=== PATIENT | female | born 1960 | race Caucasian/White ===

== ENCOUNTER → 2017-05-13 | Outpatient (CLI) | payer OTHER | LOC: M.RAD 16:00 | DX: Z12.31 Encounter for screening mammogram for malignant neoplasm of breast (principal) ==

== ENCOUNTER → 2017-08-21 | Outpatient (CLI) | payer OTHER | LOC: M.ULTRA 15:23 | DX: N92.0 Excessive and frequent menstruation with regular cycle (principal); R93.8 Abnormal findings on diagnostic imaging of other specified body structures ==

== ENCOUNTER → 2017-12-03 | Outpatient (CLI) | payer OTHER | LOC: M.ULTRA 12:50 | DX: N63.10 Unspecified lump in the right breast, unspecified quadrant (principal); N63.20 Unspecified lump in the left breast, unspecified quadrant ==

== ENCOUNTER → 2018-05-13 | Outpatient (CLI) | payer OTHER | LOC: M.RAD 13:10 | DX: Z12.31 Encounter for screening mammogram for malignant neoplasm of breast (principal) ==

== ENCOUNTER → 2018-06-17 | Outpatient (CLI) | payer OTHER | LOC: M.ULTRA 10:30 | DX: R93.89 Abnormal findings on diagnostic imaging of other specified body structures (principal); Z88.2 Allergy status to sulfonamides; Z88.8 Allergy status to other drugs, medicaments and biological substances ==

== ENCOUNTER → 2018-08-28 | Outpatient (CLI) | payer OTHER ==
[2018-08-28 13:30] VITALS: BP 137/78
[2018-08-28 13:45] VITALS: BP 131/71
[2018-08-28 13:51] VITALS: BP 122/65
[2018-08-28 14:10] VITALS: BP 129/85
[2018-08-28 14:20] VITALS: BP 127/59
== END | disposition home or self-care (01) ==
LOC: M.CL 13:11
DX: R55 Syncope and collapse (principal); Z53.8 Procedure and treatment not carried out for other reasons; I10 Essential (primary) hypertension; E03.9 Hypothyroidism, unspecified; Z79.899 Other long term (current) drug therapy; Z88.2 Allergy status to sulfonamides; Z88.8 Allergy status to other drugs, medicaments and biological substances; Z98.890 Other specified postprocedural states; Z83.3 Family history of diabetes mellitus; Z82.49 Family history of ischemic heart disease and other diseases of the circulatory system

== ENCOUNTER → 2019-02-23 | Outpatient (CLI) | payer OTHER | LOC: M.CT 09:38 | DX: Z13.6 Encounter for screening for cardiovascular disorders (principal) ==

== ENCOUNTER 2019-04-26 09:53 | Emergency (ER) | payer OTHER ==
[~2019-04-26] VITALS: Ht 170.2 cm; Wt 70.3 kg
[2019-04-26] MEDS ORDERED: LISINOPRIL-HCT1 EAC2 PO (10:06)
[2019-04-26] MEDS ORDERED: KEFLEX500 M1 PO (10:56)
[2019-04-26 11:11] VITALS: BP 125/71
== END 2019-04-26 11:12 | disposition home or self-care (01) ==
LOC: M.ERS 09:53
DX: S61.214A Laceration without foreign body of right ring finger without damage to nail, initial encounter (principal); I10 Essential (primary) hypertension; E78.00 Pure hypercholesterolemia, unspecified; Z88.2 Allergy status to sulfonamides; Z88.6 Allergy status to analgesic agent; W26.0XXA Contact with knife, initial encounter; Y93.89 Activity, other specified; Y92.89 Other specified places as the place of occurrence of the external cause; Y99.8 Other external cause status

== ENCOUNTER → 2019-05-28 | Outpatient (CLI) | payer OTHER ==
[~2019-05-28] MED LIST: KEFLEX500 M1 PO; LISINOPRIL-HCT1 EAC2 PO
== END ==
LOC: M.RAD 10:46
DX: Z12.31 Encounter for screening mammogram for malignant neoplasm of breast (principal)